=== PATIENT | male | born 1955 | race Caucasian/White ===

== ENCOUNTER → 2017-07-14 | Outpatient (CLI) | payer BC | LOC: FIMAGING 14:22 | PROVIDERS: ATTEND Orthopaedic Surgery | DX: M17.12 Unilateral primary osteoarthritis, left knee (principal); R93.6 Abnormal findings on diagnostic imaging of limbs ==

== ENCOUNTER 2017-07-27 06:25 | Observation (INO) | payer BC ==
[~2017-07-27 06:25] MED LIST: BUPI/epINEPH/KETOROLAC IU ONE; ROPIVACAINE 0.2% 80 MG, EPINEPHrine 0.2 MG, KETOROLAC TROMETHAMINE 30 MG in SYRINGE 0 ML IU ONE; TRANEXAMIC ACID 3,000 MG in NS (SYRINGE) 50 ML IRR ONE
--- NOTE | 2017-07-27 07:06 | PDHPUP ---
History & Physical Update H&P update statement: This history and physical update is based on an assessment of the patient which was completed after admission or registration (within 24 hours), but prior to the surgery/procedure. H&P update: H&P reviewed & patient examined, no change in patient's condition since H&P completed
[2017-07-27] MEDS ORDERED: ceFAZolin 2 GM/SWFI 2 GM/20 ML SYR IVP ONE (07:31)
[2017-07-27] MEDS ORDERED: FAMOTIDINE 20 MG TAB PO ONE (07:31)
[2017-07-27] MEDS ORDERED: DEXAMETHASONE 4 MG/ML VIAL IVP ONE (07:31)
[2017-07-27] MEDS ORDERED: LIDOCAINE 1% 2 ML INJ ID PRN (07:34)
[2017-07-27] MEDS ORDERED: LR 1,000 ML IV ONE (07:34)
[2017-07-27] MEDS ORDERED: TRANEXAMIC ACID 3,000 MG/50 ML BAG IRR ONE (07:58)
[2017-07-27] MEDS ORDERED: MIDAZOLAM 2 MG/2 ML VIAL ONE (09:03)
--- NOTE | 2017-07-27 09:06 | PDANEPAE ---
ANE History of Present Illness djd l knee s/f L TKA ANE Past Medical History - Cardiovascular History Hx Hypertension: Yes Hx Arrhythmias: Yes Hx Chest Pain: No Hx Coronary Artery / Peripheral Vascular Disease: No Hx CHF / Valvular Disease: No Hx Palpitations: No Cardiovascular History Comment: Afib. MPI stress test 04/21. cardioversion cancelled as clot was found in a chamber - Pulmonary History Hx COPD: No Hx Asthma/Reactive Airway Disease: No Hx Recent Upper Respiratory Infection: No Hx Oxygen in Use at Home: No Hx Sleep Apnea: Yes Sleep Apnea Screening Result - Last Documented: Positive Pulmonary History Comment: [facility] pt to bring in C-PAP - Neurologic History Hx Cerebrovascular Accident: No Hx Seizures: No Hx Dementia: No - Endocrine History Hx Diabetes: No - Renal History Hx Renal Disorders: No - Liver History Hx Hepatic Disorders: Yes Hepatic History Comment: hep c treated 2004 - Neurological & Psychiatric Hx Hx Neurological and Psychiatric Disorders: Yes Neurological / Psychiatric History Comment: vertigo - Cancer History Hx Cancer: No - Congenital Disorder History Hx Congenital Disorders: No - GI History Hx Gastrointestinal Disorders: No - Other Health History Other Health History: bruises easily - Chronic Pain History Chronic Pain: No - Surgical History Prior Surgeries: 3 colonoscopies with polyp removal. hernia 2016 ANE Review of Systems Review of Systems: - Exercise capacity METS (RN): 4 METS ANE Patient History - Allergies Allergies/Adverse Reactions: No Known Allergies Allergy (Verified 07/05/17 10:58) - Home Medications Home medications: home medication list seen and reviewed Home Medications: Apixaban [Eliquis] 5 mg PO BID 06/28/17 [Last Taken 07/21/17] Aspirin [Aspirin 81mg (*)] 81 mg PO DAILY 06/28/17 [Last Taken 07/20/17] Cholecalciferol Vit D3 [Vitamin D3 (*)] 5,000 units PO DAILY 06/28/17 [Last Taken 07/13/17] Digoxin [Lanoxin 125 mcg (RX)] 125 mcg PO DAILY10 06/28/17 [Last Taken 07/27/17 03:00] Diltiazem HCl [Cartia XT 180mg] 180 mg PO DAILY 06/28/17 [Last Taken 07/27/17 03 :00] Glucosamine Sulfate [Glucosamine Sulfate 500 MG (*)] 500 mg PO BID 06/28/17 [ Last Taken 07/13/17] Levothyroxine [Synthroid 75 mcg (*)] 75 mcg PO DAILY06 06/28/17 [Last Taken 02:00] Losartan Potassium [Cozaar 50 mg (*)] 50 mg PO DAILY 06/28/17 [Last Taken 06:00] Metoprolol Succinate Xr [Toprol Xl 100 mg (*)] 100 mg PO BID 06/28/17 [Last Taken 07/27/17 03:00] Multivitamins [Multivitamin (*)] 1 each PO DAILY 06/28/17 [Last Taken 07/13/17] [place]-3 Fatty Acids [Fish Oil 1000 mg (*)] 1,000 mg PO DAILY 06/28/17 [Last Taken 07/13/17] - NPO status NPO Status: no food or drink >8 hours (except clears) NPO Since - Liquids (Date): 07/27/17 NPO Since - Liquids (Time): 03:30 NPO Since - Solids (Date): 07/26/17 NPO Since - Solids (Time): 17:00 - Anes Hx Anes Hx: no prior problems - Smoking Hx Smoking Status: Former smoker - Alcohol Use Alcohol Use: Rarely - Family Anes Hx Family Anes Hx: none Family Hx Anesthesia Complications: none ANE Labs/Vital Signs - Vital Signs Blood Pressure: 132/91 Heart Rate: 80 Respiratory Rate: 16 O2 Sat (%): 94 Height: 182.88 cm Weight: 120.202 kg ANE Physical Exam - Airway Mallampati Score: Class 2 Mouth exam: normal dental/mouth exam - Pulmonary Pulmonary: no respiratory distress - Cardiovascular Cardiovascular: regular rate and rhythym - ASA Status ASA Status: II ANE Anesthesia Plan Anesthesia Plan: spinal Regional Anesthesia: adductor canal FNB
--- NOTE | 2017-07-27 09:07 | POSTANESTH ---
Post Anesthetic Evaluation Cardiovascular Status: Normal, Stable Respiratory Status: Normal, Stable Level of Consciousness/Mental Status: Can Participate in Eval Pain Control: Adequate, Prn Tx Ordered Nausea/Vomiting Control: Adequate, Prn Tx Ordered Complications Possibly Related to Anesthesia: None Noted
[2017-07-27] MEDS ORDERED: fentaNYL 100 MCG/2 ML INJ ONE (09:10)
[2017-07-27] MEDS ORDERED: DEXAMETHASONE 4 MG/ML VIAL ONE (09:11)
[2017-07-27] MEDS ORDERED: ONDANSETRON 4 MG/2 ML VIAL ONE (09:11)
[2017-07-27] MEDS ORDERED: PROPOFOL/EMULSION 500 MG/50 ML BOTTLE IV ONE ×2 (09:11→09:45)
[2017-07-27] MEDS ORDERED: PROMETHAZINE HCL 25 MG/ML INJ IVP PRN ×2 (09:35→10:02)
[2017-07-27] MEDS ORDERED: PROMETHAZINE HCL 25 MG SUPPR PR PRN (09:35)
[2017-07-27] MEDS ORDERED: CYCLOBENZAPRINE 10 MG TAB PO PRN (09:35)
[2017-07-27] MEDS ORDERED: DIPHENOXYLATE/ATROPINE LOMOTIL 1 TAB PO PRN (09:35)
[2017-07-27] MEDS ORDERED: ONDANSETRON 4 MG/2 ML VIAL IVP PRN ×2 (09:35→10:02)
[2017-07-27] MEDS ORDERED: METOCLOPRAMIDE 10 MG/2 ML VIAL IVP PRN ×2 (09:35→10:02)
[2017-07-27] MEDS ORDERED: MAGNESIUM HYDROXIDE 30 ML UDCUP PO PRN (09:35)
[2017-07-27] MEDS ORDERED: POLYETHYLENE GLYCOL 3350 17 GM PKT PO PRN (09:35)
[2017-07-27] MEDS ORDERED: BISACODYL 10 MG SUPP PR PRN (09:35)
[2017-07-27] MEDS ORDERED: ONDANSETRON DISINTEGRATING 4 MG TAB PO PRN (09:35)
[2017-07-27] MEDS ORDERED: LACTULOSE 20 GM/30 ML UDCUP PO PRN (09:35)
[2017-07-27] MEDS ORDERED: diphenhydrAMINE 25 MG CAP PO PRN (09:35)
[2017-07-27] MEDS ORDERED: TEMAZEPAM 15 MG CAP PO PRN (09:35)
[2017-07-27] MEDS ORDERED: MIDAZOLAM 2 MG/2 ML VIAL IVP ONE (09:43)
[2017-07-27] MEDS ORDERED: LR 1,000 ML IV SCH (10:00)
[2017-07-27] MEDS ORDERED: PHENYLEPHRINE HCL 100 MCG/ML SYR IVP PRN (10:02)
[2017-07-27] MEDS ORDERED: ALBUTEROL 3 ML DEYVIAL IH PRN (10:02)
[2017-07-27] MEDS ORDERED: MEPERIDINE 25 MG/ML SYR IVP PRN (10:02)
[2017-07-27] MEDS ORDERED: LABETALOL HCL 5 MG/ML 20 ML MDV IVP PRN (10:02)
[2017-07-27] MEDS ORDERED: HYDROCODONE/APAP 5/325 TAB PO PRN (10:02)
[2017-07-27] MEDS ORDERED: LR 500 ML IV PRN (10:02)
[2017-07-27] MEDS ORDERED: NALOXONE HCL 0.4 MG/ML INJ IVP PRN (10:02)
[2017-07-27] MEDS ORDERED: DEXAMETHASONE 4 MG/ML VIAL IVP PRN (10:02)
[2017-07-27] MEDS ORDERED: oxyCODONE IR 5 MG TAB PO PRN (10:02)
[2017-07-27] MEDS ORDERED: ACETAMINOPHEN 500 MG TAB PO PRN (10:02)
[2017-07-27] MEDS ORDERED: fentaNYL 100 MCG/2 ML INJ IVP PRN (10:02)
--- NOTE | 2017-07-27 10:44 | POSTOPPROG ---
Post Op Note Date of Operation: 07/27/17 Surgeon: Gumaro Lewis Market Sales Manager: jessica lewis Anesthesiologist: dr. guy Anesthesia: Spinal Pre-op Diagnosis: left knee OA Post-op Diagnosis: same Indication: left knee pain Procedure: L TKA robot assisted Findings: severe knee OA Inf/Abcess present in the surg proc area at time of surgery?: No EBL: 50-100
--- NOTE | 2017-07-27 10:57 | POSTANESTH ---
Post Anesthetic Evaluation Cardiovascular Status: Normal, Stable Respiratory Status: Normal, Stable Level of Consciousness/Mental Status: Can Participate in Eval Pain Control: Adequate, Prn Tx Ordered Nausea/Vomiting Control: Adequate, Prn Tx Ordered Complications Possibly Related to Anesthesia: None Noted (the earlier post anes eval was for a different patient entered by mistake here. This is the correct post aneshtesia note)
[2017-07-27] MEDS ORDERED: ceFAZolin 2 GM/DEXTROSE 100 ML IV SCH (14:00)
[2017-07-27] MEDS: ceFAZolin 2 GM/SWFI 2 GM/20 ML SYR IVP SCH ×2 (15:32→23:57)
[2017-07-27] MEDS: FAMOTIDINE 20 MG TAB PO SCH (20:38)
[2017-07-27] MEDS: METOPROLOL SUCCINATE XR 100 MG TAB PO SCH (20:38)
[2017-07-27] MEDS: ASPIRIN 81 MG CHEWABLE TAB PO SCH (20:39)
[2017-07-27] MEDS: SENNOSIDES/DOCUSATE SODIUM TAB PO SCH (20:39)
[2017-07-27] MEDS: LOSARTAN POTASSIUM 50 MG TAB PO SCH (20:39)
[2017-07-28] MEDS: oxyCODONE IR 5 MG TAB PO PRN ×3 (01:36→10:25)
[2017-07-28] MEDS: METOPROLOL SUCCINATE XR 100 MG TAB PO SCH (04:50)
[2017-07-28] MEDS ORDERED: LEVOTHYROXINE 75 MCG TAB PO SCH (06:00)
[2017-07-28] MEDS: SENNOSIDES/DOCUSATE SODIUM TAB PO SCH (07:22)
[2017-07-28] MEDS: ASPIRIN 81 MG CHEWABLE TAB PO SCH (07:23)
[2017-07-28] MEDS: LOSARTAN POTASSIUM 50 MG TAB PO SCH (07:23)
[2017-07-28] MEDS: FAMOTIDINE 20 MG TAB PO SCH (07:24)
[2017-07-28 07:25] VITALS: BP 130/96
[2017-07-28] MEDS ORDERED: ASPIRIN 81 MG CHEWABLE TAB PO SCH (09:00)
[2017-07-28] MEDS ORDERED: METOPROLOL SUCCINATE XR 100 MG TAB PO SCH (09:00)
[2017-07-28] MEDS ORDERED: APIXABAN 5 MG TAB PO SCH (09:00)
[2017-07-28] MEDS ORDERED: NON-FORMULARY NEW DRUG (Diltiazem Hcl [Cartia Xt 180mg] 180 MG) PO SCH (09:00)
[2017-07-28] MEDS ORDERED: DILTIAZEM CD 180 MG CAP PO SCH (09:00)
--- NOTE | 2017-07-28 09:06 | SOAPPROG ---
SOAP Progress Note Assessment/Plan: Assessment: Patient is doing well POD 1 s/p L TKA Pain management: pain is well controlled on oral pain meds. VTE ppx: recommend resuming aspirin and eliquis, cont VIOLA and SCDs Anemia: level is expected initially postop. Asymptomatic. Continue to monitor D/c planning: d/c to home today pending release from PT Plan: 07/28/17 09:05 Subjective: shannon is doing well, denies SOB, chest pain and N/V. pleased Objective: Vital Signs Temp Pulse Resp BP Pulse Ox 36.4 C 75 20 130/96 H 96 07/28/17 07:27 07/28/17 07:24 07/28/17 07:27 07/28/17 07:27 07/28/17 07:27 Laboratory Results 07/28/17 04:39 07/27/17 07/28/17 07/29/17 05:59 05:59 05:59 Intake Total 3320 Output Total 1300 Balance 2019 LLE: incision dressing is clean and dry, NVI, +pf/df ICD10 Worksheet Patient Problems: Problems Problem Status Onset Primary localized osteoarthritis of left knee Acute
[2017-07-28] MEDS ORDERED: DIGOXIN 125 MCG TAB PO SCH (10:00)
--- NOTE | 2017-07-28 10:04 | GDS ---
[f rep st] DISCHARGE SUMMARY ADMISSION DIAGNOSIS: Left knee osteoarthritis. DISCHARGE DIAGNOSIS: Left knee osteoarthritis. PROCEDURE: Left total knee arthroplasty, robot-assisted. VTE PROPHYLAXIS: Recommend patient resume aspirin and Eliquis. BRIEF DESCRIPTION OF HOSPITAL STAY: Patient was admitted for an elective joint arthroplasty. The pa tiesoham tolerated the procedure well and has passed physical therapy. The patient was given appropriat e antibiotic prophylaxis and venous thromboembolism prophylaxis. The patient's pain was well control led on oral pain medication, patient was holding down food, and had urinated. Decision was made to d ischarge the patient. The patient was given post-operative prescriptions pre-operatively. PLAN: Follow up as scheduled Dr. Real's office, August 18 at 1:30. /[id number]/MODL
--- NOTE | 2017-07-28 10:09 | GOP ---
[f rep st] OPERATIVE REPORT DATE OF OPERATION: 07/27/2017 SURGEON: Floyd Real MD CLIENT SOLUTIONS DIRECTOR: Rani Real, TERRELL. ANESTHESIA: Spinal. PREOPERATIVE DIAGNOSIS: Left knee osteoarthritis. POSTOPERATIVE DIAGNOSIS: Left knee osteoarthritis. PROCEDURE PERFORMED: Left total knee arthroplasty with computer navigation, robotic assist. FINDINGS: ESTIMATED BLOOD LOSS: 30 cc. INDICATIONS: The patient is a 61-year-old male with severe and progressive pain and deformity of the left knee unresponsive to conservative care. The risks and benefits of surgical intervention were e xplained in detail. DESCRIPTION OF PROCEDURE: The patient was brought to the operative room and placed on the table in t he supine position. Spinal anesthesia was induced without difficulty. A pneumatic tourniquet was appl ied about the left proximal thigh, and the leg was prepped and draped in a sterile fashion. The leg h older was applied. After exsanguination by elevation the tourniquet was inflated to 250 mmHg. Incision was made anterior medial from the tibial tuberosity to a point 2 cm proximal to the superior pole of the patella. Medial parapatellar arthrotomy was carried out from the superior pole of the pa tella and posteriorly in line with the fibers of the Type II VMO. The medial collateral ligament was elevated and the infrapatellar fat pad was resected. The patella was everted and the articular surface was excised. A 38 mm patellar button was placed. Attention was turned first to the distal aspect of the femur. After exposure of the femur, 2 half pi ns were placed for fixation of the femoral array. In a similar fashion, 2 pins were placed anteromed ial on the tibia for fixation of the tibial array. External land marking and registration of the hip center was performed without difficulty. Internal femoral and tibial registration was carried out w ithout difficulty and the femoral and tibial checkpoints were placed and verified for accuracy. Attention was turned to the femur. The foot print for the size 6 femoral component was cut with the saw using the [employer] robotic system and verified for accuracy against the CT based plan. In a similar f ashion, the saw was used to cut the footprint for the size 6 tibial component using the [employer] system an d verified for accuracy against the CT based plan. The tibial articular surface was excised without d ifficulty, followed by the intercondylar box cut. The knee was extended and the remnants of the medial and lateral meniscus were excised. The posterior capsule was injected with ropivacaine, epinephrine and Toradol. A size 6 tibial tray was positioned . Trial reduction was then carried out. There was excellent range of motion, alignment, and stability using the 6 x 9 mm polyethylene. All trials were then removed. The joint was thoroughly irrigated and carefully dried. The press-fit c omponents were implanted. The permanent 9 mm polyethylene was placed without difficulty. The tourniquet was deflated and all bleeders were coagulated. The wound was thoroughly irrigated and closed using interrupted sutures of 2-0 Vicryl for the joint capsule. The subcu was closed with 3-0 V icryl and the skin with 4-0 Monocryl. Dermabond and Steri-Strips were applied followed by a compress bell dressing. The patient was then moved from the operating room to the recovery room in good conditi on, having tolerated the procedure well. PATHOLOGY: Severe medial and patellofemoral osteoarthritis. /[id number]/MODL
== END 2017-07-28 10:37 | disposition home or self-care (01) ==
LOC: F3N 06:25
PROVIDERS: ADMIT Orthopaedic Surgery; ATTEND Orthopaedic Surgery
PROC: 0SRD0JZ Replacement of Left Knee Joint with Synthetic Substitute, Open Approach (ICD-10-PCS; principal; 2017-07-27 09:15)
DX: M17.12 Unilateral primary osteoarthritis, left knee (principal)
CPT/HCPCS: 27447; 73560; 97110; 97116; 97161; 97165; 97535; G0378; J0171; J0690; J1100; J1885; J2250; J2405; J2704; J3010